=== PATIENT | female | born 1945 | race Caucasian/White ===

== ENCOUNTER → 2019-12-02 | Outpatient (CLI) | payer OTHER ==
[~2019-12-02] MED LIST: B12INJ INJECTION; HYDROCODON-ACE1 EAC5 PO; LANOXIN 0.250.25 M1 PO; LISINOPRIL10 MG PO; LOPERAMIDE 2 MG2 M1 PO; PRILOSEC40 MG PO; ROBAXIN 750 MG750 M1 PO; VERAPAMIL ER240 M1 PO
== END ==
LOC: SJCVC 08:54
DX: I71.4 Abdominal aortic aneurysm, without rupture (principal); I10 Essential (primary) hypertension; E78.00 Pure hypercholesterolemia, unspecified; J44.9 Chronic obstructive pulmonary disease, unspecified; E11.9 Type 2 diabetes mellitus without complications; K21.9 Gastro-esophageal reflux disease without esophagitis; M19.90 Unspecified osteoarthritis, unspecified site; F17.210 Nicotine dependence, cigarettes, uncomplicated; Z90.49 Acquired absence of other specified parts of digestive tract; Z90.710 Acquired absence of both cervix and uterus; Z98.890 Other specified postprocedural states; Z88.0 Allergy status to penicillin; Z79.899 Other long term (current) drug therapy

== ENCOUNTER → 2020-06-21 | Outpatient (CLI) | payer OTHER | LOC: SJCVCIMAG 08:53 | PROVIDERS: ATTEND Nuclear Medicine Nuclear Cardiology | DX: I65.23 Occlusion and stenosis of bilateral carotid arteries (principal); E04.2 Nontoxic multinodular goiter; I71.4 Abdominal aortic aneurysm, without rupture; E11.51 Type 2 diabetes mellitus with diabetic peripheral angiopathy without gangrene; I73.9 Peripheral vascular disease, unspecified; I10 Essential (primary) hypertension; E78.00 Pure hypercholesterolemia, unspecified; J44.9 Chronic obstructive pulmonary disease, unspecified; F17.210 Nicotine dependence, cigarettes, uncomplicated; Z79.899 Other long term (current) drug therapy ==

== ENCOUNTER → 2021-02-07 | Outpatient (CLI) | payer OTHER | LOC: SJCVC 13:59 | PROVIDERS: ATTEND Internal Medicine Cardiovascular Disease | DX: R94.31 Abnormal electrocardiogram [ECG] [EKG] (principal); I47.1 Supraventricular tachycardia; E11.9 Type 2 diabetes mellitus without complications; I10 Essential (primary) hypertension; J44.9 Chronic obstructive pulmonary disease, unspecified; I71.4 Abdominal aortic aneurysm, without rupture; E78.00 Pure hypercholesterolemia, unspecified; K21.9 Gastro-esophageal reflux disease without esophagitis; M19.90 Unspecified osteoarthritis, unspecified site; F17.200 Nicotine dependence, unspecified, uncomplicated; Z88.0 Allergy status to penicillin; Z79.899 Other long term (current) drug therapy ==

== ENCOUNTER → 2021-02-26 | Outpatient (CLI) | payer OTHER ==
[~2021-02-26] MED LIST changes: +DIGOXIN125 MCG PO; +MAGNESIUM250 M1 PO; +METFORMIN HCL500 M3 PO; +NEURONTIN 300M300 M2 PO; +OMEPRAZOLE 20 M20 M1 PO; +POTASSIUM CHLO10 ME1 PO; +PROVENTIL HFA6.7 G1 INH; +SIMVASTATIN5 MG PO; +VERAPAMIL ER180 M1 PO; +ZANAFLEX4 M1 PO; +ZOFRAN4 MG PO
== END ==
LOC: LAB 11:40
PROVIDERS: ATTEND Internal Medicine Cardiovascular Disease
DX: Z01.812 Encounter for preprocedural laboratory examination (principal); Z20.822 Contact with and (suspected) exposure to COVID-19

== ENCOUNTER → 2021-03-01 | Outpatient (CLI) | payer OTHER ==
[~2021-03-01] VITALS: Ht 157.5 cm; Wt 51.7 kg
[2021-03-01 07:47] LABS: ABSOLUTE NEUTROPHILS 6.5 thou/uL (1.4-8.2); BASOPHILS 0.9 % (0.0-2.0); EOSINOPHILS 0.9 % (0.0-3.0); HEMATOCRIT 40.9 % (37.0-47.0); HEMOGLOBIN 13.2 gm/dL (12.0-15.0); LYMPHOCYTES 16.2 % (24.0-44.0); MCH 29.1 pg (26.0-34.0); MCHC 32.2 g/dL (28.0-37.0); MCV 90.3 fL (80.0-100.0); PLATELET COUNT 315 thou/uL (150-400); RBC 4.53 mil/uL (4.20-5.00); RDW 15.4 % (10.5-14.5); WBC 9.1 thou/uL (4.0-11.0)
[2021-03-01 07:59] LABS: CALCIUM 9.8 mg/dL (8.5-10.1); CREATININE 0.9 mg/dL (0.6-1.0); POTASSIUM 4.3 mmol/L (3.5-5.1)
[2021-03-01 08:00] LABS: APTT 24.8 Seconds (24.5-32.8); PROTIME 10.1 Seconds (9.3-11.4)
[2021-03-01 08:06] LABS: TOTAL BILIRUBIN 0.3 mg/dL (0.2-1.0); TOTAL PROTEIN 7.8 g/dL (6.4-8.2)
--- NOTE | 2021-03-02 09:14 | P ---
[facility] [place] [address] PROCEDURE REPORT Name: SAGAR CARUSO Room #: [id number] Admission: 03/01/21 Attend Phys: River Arteaga MD Discharge: Date of : 45 Report #: [id number] THIS REPORT FOR: cc: Orlando Subramanian James L. DO Couchonnal, Luis F. MD ~ DATE OF SERVICE: 03/01/2021 PREOPERATIVE DIAGNOSIS: Supraventricular tachycardia. POSTOPERATIVE DIAGNOSIS: Typical atrioventricular jyotsna reentrant tachycardia. The patient is a 75-year-old female with a history of SVT for 40+ years, who has failed medications and is here for ablation. PROCEDURES PERFORMED: 1. Supraventricular tachycardia ablation, CPT code 98641. 2. Left atrial pacing and recording, CPT code 18172. 3. Program stimulation and pacing after IV drug infusion, CPT code 18412. 4. 3D mapping, CPT code 37966. ANESTHESIA: The patient underwent MAC anesthesia with no anesthesia related complications. DESCRIPTION OF PROCEDURE: The patient underwent informed consent. We discussed the details of the procedure including the risks, which include but not limited to bleeding, vascular damage, stroke, VA as well as damage to the [place] conduction system requiring pacemaker. She understood these risks and is willing to proceed. The patient was brought to EP laboratory in a fasting and nonsedated state, prepped and draped in a sterile fashion. I injected lidocaine at the bilateral groin regions and obtained access to bilateral femoral veins placing an 8 and 6-Occitan short sheath in the right femoral vein and 6 and 7-Occitan short sheath in the left femoral vein. Under fluoroscopy, a 3 quadripolar catheters were positioned at the HRA, His and RV positions and a Decapolar catheter was placed into the coronary sinus for left atrial pacing and recording. At baseline, the patient was in sinus rhythm with a sinus cycle length of 810 milliseconds, WA interval 166 milliseconds, QRS duration 90 milliseconds, QT interval 400 milliseconds, AH interval 85 milliseconds, HV interval 56 milliseconds. Atrial pacing was performed and AV block was noted at 470 milliseconds. Atrial ERP was noted at 320 milliseconds at a [address] cycle length, double atrial stimuli were delivered and no SVT was induced. VA block was noted at 460 milliseconds and VA conduction was both midline and decremental. VA ERP was noted at 390 milliseconds at a 500 [facility] [address] [place] [address] PROCEDURE REPORT Name: SAGAR CARUSO Room #: REG [facility]#: [id number] Admission: 03/01/21 Attend Phys: River Arteaga MD Discharge: Date of : 45 Report #: [id number] cycle length. Next, isoproterenol was initiated at 2 mcg per minute and AV block was noted at 250 milliseconds. Atrial ERP was noted at 190 milliseconds, [address] cycle length. Double atrial extrastimuli, I would demonstrate single AV jyotsna echoes. Ventricular pacing was performed and VA block was noted to be 320 milliseconds again with VA conduction that was midline and decremental. I decreased the isoproterenol and continued testing and with atrial burst pacing, the patient went into SVT with a tachycardia cycle length of 340 milliseconds, a septal VA time of 30 milliseconds. Attempts to entrain this resulted in termination of the tachycardia. I was able to induce this arrhythmia 2 more times, but could not entrain it. 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 3D MAPPING AND ABLATION: Next, the HRA catheter was removed and the sheath was exchanged for a SR0 and a 4-mm Biosense Benjamin ablation catheter, 3D geometry of the right atrium was created with specific emphasis of the His bundle region, slow pathway region and a coronary sinus. Ablation was performed at 50 [place] and 55 degrees. A total of 9 ablation lesions were delivered. The last 2 lesions had nice slow junctionals. There was never any compromise to AV jyotsna function. POST-ABLATION FINDINGS: Post-ablation, a basic EP study was performed again. Isoproterenol was reinitiated at 2 mcg per minute and AV block was noted at 260 milliseconds. Atrial ERP was noted 230 milliseconds at a [address] cycle length could not induce any SVT nor did I have any AV jyotsna echoes. Isoproterenol was decreased to 1 mcg and testing was performed for 10 minutes and then isoproterenol was turned off and we continued testing and we could no longer induce SVT. Off isoproterenol, AV block was noted at 360 milliseconds. As such, the procedure was concluded. Catheters and sheaths were pulled and hemostasis obtained. The patient awoke neurologically and hemodynamically intact. No complications and no significant bleeding. CONCLUSIONS: 1. Successful ablation of typical AV jyotsna reentry tachycardia. 2. Normal SA jyotsna function. 3. Normal AV jyotsna function. 4. Normal His-Purkinje function. 5. No other inducible arrhythmias on or off isoproterenol. <ELECTRONICALLY SIGNED> By: River Arteaga MD 03/02/21 0914 [id number] 1523 River Arteaga MD /nt
== END | disposition home or self-care (01) ==
LOC: CATH 06:23
PROVIDERS: ATTEND Internal Medicine Cardiovascular Disease
DX: I47.1 Supraventricular tachycardia (principal); R55 Syncope and collapse; I10 Essential (primary) hypertension; I25.10 Atherosclerotic heart disease of native coronary artery without angina pectoris; E11.9 Type 2 diabetes mellitus without complications; F17.210 Nicotine dependence, cigarettes, uncomplicated; J44.9 Chronic obstructive pulmonary disease, unspecified; Z98.890 Other specified postprocedural states; Z79.899 Other long term (current) drug therapy; Z87.19 Personal history of other diseases of the digestive system; Z88.0 Allergy status to penicillin
CPT/HCPCS: 62110; 62900; 70005

== ENCOUNTER → 2021-05-29 | Outpatient (CLI) | payer OTHER | LOC: SJCVC 08:48 | PROVIDERS: ATTEND Internal Medicine Cardiovascular Disease | DX: I47.1 Supraventricular tachycardia (principal); I10 Essential (primary) hypertension; E11.9 Type 2 diabetes mellitus without complications; J44.9 Chronic obstructive pulmonary disease, unspecified; R55 Syncope and collapse; K85.90 Acute pancreatitis without necrosis or infection, unspecified; I71.4 Abdominal aortic aneurysm, without rupture; K52.9 Noninfective gastroenteritis and colitis, unspecified; F17.210 Nicotine dependence, cigarettes, uncomplicated; Z88.0 Allergy status to penicillin; Z79.84 Long term (current) use of oral hypoglycemic drugs; Z79.899 Other long term (current) drug therapy ==

== ENCOUNTER → 2021-06-19 | Outpatient (CLI) | payer OTHER | LOC: SJCVCIMAG 07:41 | PROVIDERS: ATTEND Nuclear Medicine Nuclear Cardiology | DX: I65.23 Occlusion and stenosis of bilateral carotid arteries (principal); I71.4 Abdominal aortic aneurysm, without rupture; I77.9 Disorder of arteries and arterioles, unspecified; I10 Essential (primary) hypertension; E11.9 Type 2 diabetes mellitus without complications; E04.1 Nontoxic single thyroid nodule; J44.9 Chronic obstructive pulmonary disease, unspecified; E78.00 Pure hypercholesterolemia, unspecified; F17.210 Nicotine dependence, cigarettes, uncomplicated; Z88.0 Allergy status to penicillin; Z79.899 Other long term (current) drug therapy ==